=== PATIENT | female | born 1985 | race Caucasian/White ===

== ENCOUNTER 2020-07-17 17:51 | Emergency (ER) | payer OTHER, MEDICAID ==
[~2020-07-17] VITALS: Ht 177.8 cm; Wt 77.1 kg
[2020-07-17] MEDS ORDERED: VITAMIN D21250 MCG PO (18:05)
[2020-07-17] MEDS ORDERED: PROPRANOLOL 1010 MG PO (18:05)
[2020-07-17] MEDS ORDERED: NEURONTIN 300M300 M2 PO (18:05)
[2020-07-17] MEDS ORDERED: EFFEXOR XR150 MG PO (18:05)
[2020-07-17] MEDS ORDERED: SEROQUEL200 MG PO (18:06)
[2020-07-17] MEDS ORDERED: L-METHYLFOLATE1 EAC4 PO (18:06)
[2020-07-17] MEDS ORDERED: ROSUVASTATIN CA20 MG PO (18:06)
[2020-07-17 19:56] VITALS: BP 115/65
== END 2020-07-17 19:56 | disposition home or self-care (01) ==
LOC: M.ERS 17:51
DX: S93.691A Other sprain of right foot, initial encounter (principal); E78.5 Hyperlipidemia, unspecified; Z88.5 Allergy status to narcotic agent; Z88.8 Allergy status to other drugs, medicaments and biological substances; X50.1XXA Overexertion from prolonged static or awkward postures, initial encounter; Y93.89 Activity, other specified; Y92.89 Other specified places as the place of occurrence of the external cause; Y99.8 Other external cause status